=== PATIENT | male | born 1970 | race Caucasian/White ===

== ENCOUNTER 2019-11-19 20:13 | Emergency (ER) | payer OTHER ==
[~2019-11-19 20:13] MED LIST: AMOX500 PO; CEPH500 PO; HYDACE5 PO; IBUP800; IBUP800 PO; NAPR500 PO; SULTRIDS PO
== END 2019-11-19 21:50 | disposition home or self-care (01) ==
DX: S39.012A Strain of muscle, fascia and tendon of lower back, initial encounter (principal); F17.210 Nicotine dependence, cigarettes, uncomplicated; X50.0XXA Overexertion from strenuous movement or load, initial encounter